=== PATIENT | male | born 1965 | race Caucasian/White ===

== ENCOUNTER 2018-01-07 10:15 | Emergency (ER) | payer OTHER ==
[~2018-01-07] VITALS: Ht 165.1 cm; Wt 126.3 kg
[~2018-01-07 10:15] MED LIST: ADVAIR 250-501 EACH IH; ASPIR-TRIN325 M1 PO; BENICAR20 MG PO; BUDEPRION SR150 MG PO; BUPROPION XL150 MG PO; CITALOPRAM HBR20 MG PO; CITALOPRAM HBR40 M1 PO; Celexa PO; D-VERT25 MG PO; EFFEXOR XR75 MG PO; FLEXERIL10 MG PO; FLEXERIL5 MG PO; FLONASE16 G1 BOTH NARES; FUROSEMIDE20 MG PO; LIDODERM 5% P1 PATCH TD; LOPRESSOR50 MG PO; LORTAB 5-325 M1 EACH PO; LOVASTATIN; LOVASTATIN40 MG; LUNESTA1 MG PO; METOCLOPRAMIDE10 MG PO; MEVACOR40 MG PO; MOTRIN600 MG PO; Mevacor PO; NAPROSYN500 MG PO; NIZATIDINE150 MG PO; NOHOMEMEDS; PERCOCET 5/31 TABLET PO; PLAVIX75 MG PO; PREDNISONE20 MG PO; PROAIR HFA8.5 GM IH; PROTONIX40 MG PO; SIMVASTATIN20 M1 PO; TOPROL XL50 MG PO; TRAMADOL HCL50 MG PO; TYLENOL WITH C1 EACH PO; Toprol XL PO; ULTRAM50 MG PO; UNABLEOBTAIN; VENTOLIN HFA18 GM IH; Zocor PO
[2018-01-07 10:19] VITALS: BP 142/93
[2018-01-07] MEDS ORDERED: ULTRAM50 MG PO (13:18)
[2018-01-07] MEDS ORDERED: LIDODERM 5% P1 PATCH TD (13:18)
== END 2018-01-07 13:35 | disposition home or self-care (01) ==
LOC: EME 10:15
DX: S39.012A Strain of muscle, fascia and tendon of lower back, initial encounter (principal); S30.0XXA Contusion of lower back and pelvis, initial encounter; W18.39XA Other fall on same level, initial encounter; W54.1XXA Struck by dog, initial encounter; M12.88 Other specific arthropathies, not elsewhere classified, other specified site; M47.897 Other spondylosis, lumbosacral region; I25.2 Old myocardial infarction; Z88.0 Allergy status to penicillin; Z72.0 Tobacco use
CPT/HCPCS: 72100; 73502; 99281; 99283